=== PATIENT | male | born 1960 | race Caucasian/White ===

== ENCOUNTER → 2019-11-24 | Outpatient (CLI) | payer OTHER ==
[~2019-11-24] MED LIST: ACETAMINOPHEN325 MG PO; ACTOS15 MG PO; ADULT LOW DOSE81 MG PO; CENTRUM SILVER1 EAC2 PO; CIPROFLOXACIN500 M3; CLONAZEPAM 1 MG1 M1 PO; FERREX-150 PLU150 MG; FLAGYL500 MG; HYDROCODON-ACE1 EAC5; HYDROCODONE-AP1 EAC6 PO; LIPITOR40 MG PO; LOPRESSOR50 MG PO; NORCO 5-325 TA1 EACH PO; PERCOCET; PERCOCET 5-3251 EACH; PERCOCET 5-3251 EACH PO; PERCOCET PO; PREDNISONE; PRINIVIL10 MG PO; TOPROL XL50 MG PO; TRICOR48 MG PO; ZOCOR 20 MG TAB20 M1 PO
== END ==
LOC: M.RAD 11:48
DX: R05 Cough (principal); I11.9 Hypertensive heart disease without heart failure; J02.9 Acute pharyngitis, unspecified

== ENCOUNTER 2020-01-14 09:48 | Inpatient (IN) | payer OTHER ==
[~2020-01-14] VITALS: Ht 180.3 cm; Wt 105.4 kg
[2020-01-14] VITALS (8 sets, daily range): BP systolic 110–179; BP diastolic 63–104
[~2020-01-14 09:48] MED LIST changes: +NORCO 5-325 TA1 EAC2 PO
[2020-01-14 10:33] LABS: ABSOLUTE BASOPHILS 0.1 thou/uL (0.0-0.2); ABSOLUTE EOSINOPHILS 0.2 thou/uL (0.0-0.7); ABSOLUTE LYMPHOCYTES 2.9 thou/uL (0.8-5.3); ABSOLUTE MONOCYTES 0.8 thou/uL (0.0-1.2); ABSOLUTE NEUTROPHILS 8.8 thou/uL (1.6-8.1); EOSINOPHILS 1.9 %; HEMATOCRIT 46.9 % (42.0-52.0); HEMOGLOBIN 16.5 gm/dL (14.0-18.0); LYMPHOCYTES 22.3 %; MCH 33.1 pg (26.0-34.0); MCHC 35.1 g/dL (28.0-37.0); MCV 94.2 fL (80.0-100.0); MONOCYTES 6.1 %; MPV 8.2 fl. (7.2-11.1); NUCLEATED RBCS 0 /100WBC; PLATELET COUNT* 214 thou/uL (150-400); POLYS 68.7 %; RBC 4.98 mil/uL (4.50-6.00); RDW-CV 14.5 % (10.5-14.5); WBC 12.8 thou/uL (4.0-11.0)
[2020-01-14 10:40] LABS: CALCIUM 8.8 mg/dL (8.5-10.1); POTASSIUM 4.3 mmol/L (3.5-5.1)
[2020-01-14 10:46] LABS: APTT 28.3 Seconds (25.0-31.3); PROTIME 10.6 Seconds (9.20-11.50)
[2020-01-14 10:54] LABS: ALBUMIN 4.2 g/dL (3.4-5.0); CK-MB MASS 9.6 ng/mL (<0.5-3.6); MAGNESIUM 1.6 mg/dL (1.8-2.4); TOTAL BILIRUBIN 0.5 mg/dL (<0.1-1.0); TOTAL PROTEIN 7.7 g/dL (6.4-8.2)
--- NOTE | 2020-01-14 11:09 | NUR ---
DISCONTINUED CARDIZEM R/T HYPOTENSION. DR HOWELL AT PTS BEDSIDE TO EVAL. PT WILL BE GOING TO CLEAT LAYER. ORDERS FOR AMIODARONE BOLUS AND DRIP TO BE STARTED.
--- NOTE | 2020-01-14 14:21 | EKG ---
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: [facility] : 1960 Requested By: Jake Jaquez Order Number: [id number] MD: Kumar Patel Measurements Intervals [place] Rate: 146 P: 0 MS: QRS: 92 QRSD: 174 T: -53 QT: 348 QTc: 543 Interpretive Statements wide complex tachycardia LBBB Compared to ECG 01/23/2017 08:17:20 LEFT BUNDLE BRANCH BLOCK now noted Sinus rhythm no longer present Electronically Signed On 01-14-2020 14:20:15 REFLESHER by Kumar Patel [email or web address] <ELECTRONICALLY SIGNED> By: Kumar Patel MD, [facility] 01/14/20 1420 0954 0954 Kumar Patel MD, [facility] /EPI
--- NOTE | 2020-01-14 16:36 | NUR ---
PT UP FROM OTM CONSULTANT. PT DEMANDING TO GET UP. INFORMED PT OF RISK OF BLEEDING. PT STATES "I DONT CARE. I WILL BLEED! I NEED TO GET UP OR GET SOME DAMN PAIN MEDICATIONS" [place]CO ORDERED BUT PT STATES IT DOES NOT WORK QUICKLY ENOUGH. DR MILLER PAGED FOR ORDERS
--- NOTE | 2020-01-14 17:00 | NUR ---
PT DIAPHORETIC AND ANXIOUS. REPORTS BACK PAIN AND SOA. BP ELEVATED. HOB ELEVATED WHICH SEEMED TO IMPROVES SOA. EKG DONE WHICH SHOWS RAPID AFLUTTER. PAIN MEDS GIVEN ORDERED. WILL CONTINUE TO MONITOR
[2020-01-14] MEDS ORDERED: METFORMIN HCL500 MG PO (17:45)
[2020-01-14] MEDS ORDERED: BASAGLAR K100 UNIT/1 SUBQ (17:46)
--- NOTE | 2020-01-14 17:51 | CON ---
[address] [address] CONSULTATION Name: VERONICA MENDOZA Room: [address] IN .R.#: [id number] Admission: 01/14/20 Attend Phys: Justin Aguilar Discharge: Date of : 64 Report #: [id number] THIS REPORT FOR: //name// cc: Kumar Kidd MD, David L. MD ~ THIS REPORT FOR: //name// CC: Kumar Damico DATE OF SERVICE: 01/14/2020 INDICATION: Non-ST elevation myocardial infarction and atrial flutter. HISTORY OF PRESENT ILLNESS: The patient is a very pleasant 59-year-old gentleman who is well known to our service. He has a history of coronary artery disease with previous coronary artery bypass grafting remotely. Cardiac catheterization in the setting of acute MD 3 years ago showed an occluded saphenous vein graft to the right coronary artery that was unable to be opened. He had a patent saphenous vein graft to an obtuse marginal and a patent HASTINGS graft to the LAD. The patient reports having intermittent chest discomfort for the past 2 days. The patient is seen in the Emergency Room and found to be in a tachyarrhythmia with underlying bundle branch block that appears most consistent with an atrial flutter with 2:1 conduction. The patient is hemodynamically stable. PAST MEDICAL HISTORY: Significant for hypertension, dyslipidemia and coronary artery disease as outlined above. ALLERGIES: HE IS ALLERGIC TO PENICILLIN. HOME MEDICATIONS: Aspirin 81 mg daily, atorvastatin 80 mg daily, Mangum 5/325 q. 6 hours p.r.n., lisinopril 10 mg daily, Lopressor 50 mg b.i.d., multivitamin 1 tablet daily. FAMILY HISTORY: Positive for coronary artery disease in both his mother and father. SOCIAL HISTORY: The patient is . He smokes a half a pack of cigarettes daily. He drinks alcohol rarely. REVIEW OF SYSTEMS: Positive for chest discomfort, dyspnea on exertion. He denies orthopnea or paroxysmal nocturnal dyspnea. Otherwise, 14-point review [place] [address] CONSULTATION Name: VERONICA MENDOZA Room: [address]#: [id number] Admission: 01/14/20 Attend Phys: Justin Aguilar Discharge: Date of : 64 Report #: [id number] PHYSICAL EXAMINATION: VITAL SIGNS: Blood pressure 118/73, pulse is 146 and regular. GENERAL: This is a pleasant gentleman who does not appear to be in distress. HEENT: Head is normocephalic, atraumatic. Extraocular muscles intact. Mucous membranes are moist. NECK: Shows no jugular venous distention. CHEST: Reveals clear lung shipley. CARDIAC: Reveals a tachycardic rhythm that is regular, without gallop or murmur. ABDOMEN: Reveals normal bowel sounds. The abdomen is soft, nontender. EXTREMITIES: Shows no edema. SKIN: Warm and dry. DIAGNOSTIC DATA: Chest x-ray shows no acute cardiopulmonary abnormality. LABORATORY DATA: Reviewed. Sodium 141, potassium 4.3, chloride 105, bicarb 22, BUN 19, creatinine 1.0, serum glucose 170. NT-proBNP 4412. Troponin is 1.01. Coags are within normal limits. White blood cell count 12.8, hemoglobin 16.5, platelet count 214,000. IMPRESSION AND RECOMMENDATIONS: 1. Tachycardia, likely atrial flutter with 2:1 conduction and bundle branch block. We will proceed with DC cardioversion after sedating the patient. The patient is being given amiodarone bolus and drip at the present time. 2. Non-ST elevation myocardial infarction with symptoms to suggest unstable angina/non-ST segment elevation myocardial infarction. We will proceed with cardiac catheterization with intervention pending the results of that study. 3. Hypertension, adequately controlled at present. We will continue home medications as outlined above. 4. Dyslipidemia. Continue atorvastatin at current dose. 5. Probable acute on chronic combined heart failure. The patient appears stable at this point in time, we will diurese as needed. <ELECTRONICALLY SIGNED> By: Remi Damico MD, FACC 01/14/20 1751 1140 1310Micbong Damico MD, FACC /nt
[2020-01-15] VITALS: BP 120/83
[2020-01-15 04:00] VITALS: BP 128/92
--- NOTE | 2020-01-15 04:43 | NUR ---
PATIENT NOT PROGRESSING TOWARDS GOALS: PATIENT SHORT OF BREATH ANYTIME HE LIES DOWN. ENCOURAGED PATIENT TO KEEP HOB ELEVATED AND TAKE IN DEEP BREATHS. OXYGEN PER NC INCREASED TO 5L O2 NC TO MAINTAIN SATURATION >92%. PATIENT DENIES CHEST PAIN AND DISCOMFORT. CALL LIGHT WITHIN REACH
[2020-01-15 05:05] LABS: HEMATOCRIT 45.6 % (42.0-52.0); HEMOGLOBIN 15.5 gm/dL (14.0-18.0); MCH 32.5 pg (26.0-34.0); MCHC 33.9 g/dL (28.0-37.0); MCV 95.7 fL (80.0-100.0); MPV 8.5 fl. (7.2-11.1); RBC 4.76 mil/uL (4.50-6.00); RDW-CV 14.3 % (10.5-14.5); WBC 14.8 thou/uL (4.0-11.0)
[2020-01-15 05:09] LABS: ANION GAP 12 mmol/L (7-16); BUN 19 mg/dL (7-18); CALCIUM 8.2 mg/dL (8.5-10.1); CHLORIDE 101 mmol/L (98-107); CHOLESTEROL 118 mg/dL (<200); CO2 23 mmol/L (21-32); CREATININE 1.2 mg/dL (0.6-1.3); GLUCOSE 190 mg/dL (70-99); HDL CHOLESTEROL 35 mg/dL (>40); LDL CHOLESTEROL 33 mg/dL (<100); POTASSIUM 4.3 mmol/L (3.5-5.1); SODIUM 136 mmol/L (136-145); TC:HDL 3.4 Ratio (Not establshd); TRIGLYCERIDE 253 mg/dL (<150); VLDL 51 mg/dL (<40)
[2020-01-15 05:25] LABS: SERUM ASSESSMENT CLEAR; TROPONIN-I LEVEL 1.18 ng/mL (<0.06)
[2020-01-15 07:47] VITALS: BP 139/97
--- NOTE | 2020-01-15 09:05 | NUR ---
ASSUMED CARE OF PT THIS AM AROUND 07- RETAIL GREETER IN PLACE ORDERED, TRACING SR- UPON ASSESSMENT PT NOTED TO BE SITTING UP IN BED, PT REPORTS HAVING HARD TIME LAYING BACK WITH BREATHING- A&O X4- CONT OF BOWEL AND BLADDER- SBA WITH TRANSFERS FOR SAFETY- LCTA/DIMINISHED IN BASES- SOA NOTED- VSS, O2 SAT 92% ON 5L VIA NC- ABD SOFT/OBESE/NON-TENDER, BS X4 QUADS- LAST BM REPORTED THIS AM-FAIR PO INTAKE NOTED, BS MONITORED ORDERED WITH SSI PRESCRIBED- IV NOTED TO LEFT AC INTACT, IV AMMIO INFUSSING PRESCIBED- IV LASIX 40MG PER IV X1 GIVEN THIS AM PRESCRIBED-PT RATES PAIN 8/10 TO BACK AND CHEST, PRN HYDROCODONE GIVEN PER PT REQUEST- CALL LIGHT AND PERSONAL BELONGINGS WITH IN REACH- PT MAKES NEEDS KNOWN- ALL NEEDS MET AT THIS TIME-WCTM
--- NOTE | 2020-01-15 10:10 | EKG ---
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 : 1960 Requested By: Kumar Patel Order Number: [id number] Fredi MD: Kumar Patel Measurements Intervals [place] Rate: 138 P: 244 MI: 55 QRS: 96 QRSD: 161 T: -62 QT: 354 QTc: 537 Interpretive Statements wide complex tachycardia LBBB Prolonged QT interval Artifact in lead(s) II,V4,V5 and baseline wander in lead(s) V3 Compared to ECG 01/14/2020 09:54:05 no change Electronically Signed On 01-15-2020 10:08:50 SOLVENT PLANT TREATER by Kumar Patel [email or web address] <ELECTRONICALLY SIGNED> By: Kumar Patel MD, FAC 01/15/20 1008 1655 1655 Kumar Patel MD, FAC /EPI
--- NOTE | 2020-01-15 10:22 | EKG ---
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
[2020-01-15 12:48] VITALS: BP 134/96
--- NOTE | 2020-01-15 14:32 | NUR ---
Pt is A&O. Resides at home alone. Active and independent, continues to work. No DME, no O2. No hx of HH. Hx of SNF at [facility]. Goal is home at mt. Following.
[2020-01-15 15:17] VITALS: BP 134/96
[2020-01-15 20:00] VITALS: BP 136/88
[2020-01-16] VITALS (7 sets, daily range): BP systolic 111–134; BP diastolic 59–96
[2020-01-16 05:26] LABS: CALCIUM 8.4 mg/dL (8.5-10.1); POTASSIUM 3.8 mmol/L (3.5-5.1)
--- NOTE | 2020-01-16 05:29 | NUR ---
PATIENT PROGRESSING TOWARDS GOALS: REPORTS THAT HIS SHORTNESS OF AIR HAS IMPROVED. HE HAS BEEN ABLE TO LIE DOWN AND SLEEP THIS SHIFT. PATIENT REMAINS ON 5L O2 NC. INSTRUCTED TO VOID IN URINAL SO THAT WE CAN MEASURE OUTPUT. PATIENT COMPLIANT WITH INSTRUCTIONS. CALL LIGHT WITHIN REACH
--- NOTE | 2020-01-16 09:08 | NUR ---
ASSUMED CARE OF PT THIS AM AROUND 0715- HIGH SCHOOL SOCIAL STUDIES TUTOR IN PLACE ORDERED, TRACING SR/BBB- UPON ASSESSMENT PT NOTED TO BE RESTING IN BED, WATCHING TV- PT A&O X4- CONT OF B/B- UP AD-RUFUS IN ROOM, STEADY GAIT NOTED- LCTA/DIMINISHED IN BASES- DYSPNEA NOTED ON EXERTION, NOTED WITH IMPROVEMENT- PT REPORTS TO BE ABLE TO BREATH BETTER AND SOA IMPROVED- VSS, O2 SAT 98% ON 3L VIA NC- ABD FIRM/ROUND/NON-TENDER, BS X4 QUADS- LAST BM REPORTED 01/15/20- GOOD PO INTAKE NOTED THIS AM WITH BREAKFAST, BS MONITORED ORDERED WITH SSI PRESCIBED-IV NOTED LEFT AC INTACT AND SL- PT RATES PAIN 02/18 TO BACK THIS AM, PRN HYDROCODONE GIVEN AT 0840- CALL LIGHT AND PERSONAL BELONGINGS WITH IN REACH- PT MAKES NEEDS KNOWN- ALL NEEDS MET AT THIS TIME-WCTM
[2020-01-16] MEDS ORDERED: PLAVIX 75 MG TA75 MG PO (09:38)
[2020-01-16] MEDS ORDERED: SPIRONOLACTONE25 MG PO (09:41)
[2020-01-16] MEDS ORDERED: NITROSTAT0.4 MG SUBLING (09:43)
[2020-01-16] MEDS ORDERED: ACETAMINOPHEN650 M1 PO (09:44)
[2020-01-16] MEDS ORDERED: CARVEDILOL3.125 MG PO (09:45)
[2020-01-16] MEDS ORDERED: COZAAR 25 MG TA25 MG PO (09:46)
[2020-01-16] MEDS ORDERED: LASIX 40 MG TAB40 MG PO (09:47)
[2020-01-16] MEDS ORDERED: NICOTINE TRANSD21 M1 TRANSDERM (09:50)
[2020-01-16] MEDS ORDERED: AMIODARONE HCL400 MG PO (09:50)
[2020-01-16 12:25] LABS: ABSOLUTE BASOPHILS 0.1 thou/uL (0.0-0.2); ABSOLUTE EOSINOPHILS 0.1 thou/uL (0.0-0.7); ABSOLUTE MONOCYTES 0.9 thou/uL (0.0-1.2); ABSOLUTE NEUTROPHILS 9.1 thou/uL (1.6-8.1); BASOPHILS 0.7 %; EOSINOPHILS 0.9 %; HEMATOCRIT 41.8 % (42.0-52.0); HEMOGLOBIN 14.6 gm/dL (14.0-18.0); LYMPHOCYTES 16.3 %; MCH 32.9 pg (26.0-34.0); MCHC 34.9 g/dL (28.0-37.0); MCV 94.3 fL (80.0-100.0); MONOCYTES 7.6 %; MPV 8.1 fl. (7.2-11.1); NUCLEATED RBCS 0 /100WBC; PLATELET COUNT* 145 thou/uL (150-400); POLYS 74.5 %; RBC 4.43 mil/uL (4.50-6.00); RDW-CV 14.4 % (10.5-14.5); WBC 12.2 thou/uL (4.0-11.0)
[2020-01-16] MEDS ORDERED: FISH OIL 1,001000 M2 PO (12:31)
--- NOTE | 2020-01-19 12:48 | CARD ---
[facility] [address] [place] [address] CARDIAC CATH REPORT Name: VERONICA MENDOZA Room: [address] IN [facility]#: [id number] Admission: 01/14/20 Attend Phys: Justin Aguilar Discharge: 01/16/20 Date of : 64 Report #: [id number] THIS REPORT FOR: //name// cc: Kumar Kidd MD, David L. MD ~ THIS REPORT FOR: //name// APPROVED REPORT Study performed: 01/14/2020 11:07:23 Patient Details Patient Status: ED Room #: The patient is a 59 year-old male Event Personnel Remi Damico Screw Machine Repairer, Kumar Patel Ward Service Supervisor, Priya Andrew Theatrical Agent, Rafael Roberts ASSISTANT CORPORATE CONTROLLER Scrub, Nita Finn RTR Monitor Procedures Performed Art Access - R femoral artery, Left Heart Cath Coronaries Bypass Grafts LHCCORCABG, TAMELA Place w/wo Plasty Single CIRC, Hemostasis w/ Mynx Indication Abnormal ECG, Non-STEMI , Arrhythmia, Dyspnea, Cardiomyopathy, Chest pain Risk Factors Hypercholesterolemia, Coronary Artery DiseaseHypertension, Tobacco History () Previous Procedures/Diagnoses Previous CABGPrevious PCI Admission/Lab Medications/Medications given during procedure Glycoprotein IllbIlla Inhibitors, Heparin Unfract., Oxygen Nasal cannula 2 l per min, Lidocaine Subcut 18 ml, Heparin IV bolus 6000 units, Aggrastat IV bolus 10 ml, Nitroglycerin IC 100 mcg, Plavix PO 600 mg Procedure Narrative The patient was brought urgently to the [place] [address] CARDIAC CATH REPORT Name: VERONICA MENDOZA Room: [address]#: [id number] Admission: 01/14/20 Attend Phys: Justin Aguilar Discharge: 01/16/20 Date of : 64 Report #: [id number] Laboratory and was prepped and draped in a sterile manner. The right femoral groin area was infiltrated with 2% Lidocaine subcutaneous anesthesia. A 6F Fay sheath was inserted into the right femoral artery. Coronary angiography was performed using coronary diagnostic catheters. The right coronary system was accessed and visualized with a 6F JR4 catheter. The left coronary system was accessed and visualized with a 6FJL4 catheter. The left ventricle was accessed and visualized with a 6F Angled Pigtail catheter. Left ventricular/Aortic Valve gradient assessed via catheter pullback. Left ventriculogram was performed in NAM projection. Closure device was deployed with a 6 Fr Mynx. The patient tolerated the procedure well and there were no complications associated with the procedure. There was no hematoma. Prior to left heart cath, patient was cardioverted successfully at 300 Joules. The saphenous vein grafts and the HASTINGS graft was accessed and visualized with a 6F JR4 catheter. Intraoperative Conscious Sedation Sedation start time: 11:54 Case end Time: 13:01 Fentanyl 200 mcg Versed 8 mg Fluoro Time: 10.6 minutes Dose: DAP 567448 cGycm2 2409 mGy Contrast Type and Amount: Omnipaque 400 ml Coronary Angiography The patient's coronary anatomy is co- dominant. [place] Artery Percent Stenosis Grafts (Complete if Previous CABG=Yes: Percent Stenosis) Patent HASTINGS graft to the lad. Patent SVG to the diagonal artery. Diagnostic Cath Left Main Mildly plaqued and bifurcates into an LAD and circumflex. LAD Totally occluded after the takeoff of a diagonal branch. The mid and distal vessel filled by HASTINGS graft. Diagonal 1 Small and diffusely moderately plaqued. Diagonal 2 Occluded large branched vessel filled by saphenous vein graft Circumflex 90% stenosed prior to the takeoff of a small obtuse marginal branch. OM1 Small and diffusely plaqued. OM2 Marginal branch vessel with minimal disease. Right Coronary Totally [place] [address] CARDIAC CATH REPORT Name: VERONICA MENDOZA Room: [address] IN [facility]#: [id number] Admission: 01/14/20 Attend Phys: Justin Aguilar Discharge: 01/16/20 Date of : 64 Report #: [id number] PDA Filled by [id number] collaterals. RPLV Filled by [id number] collaterals. Left Ventriculography The left ventricle is moderately dilated in size with severely decreased contractility. The left ventricular ejection fraction is estimated to be 25-30%. The basal inferior wall is akinetic. There is otherwise mobile hypokinesis. Hemodynamics The aortic pressure is 88/63 mmHg with a mean of 72 mmHg. The left ventricular pressure is 107/24 mmHg with a mean of mmHg. The left ventricular end diastolic pressure is 36 mmHg. PCI Technique Lesion Anticoagulation was achieved with Heparin 6000 units IV bolus. bolus of iv aggrastat given Percutaneous coronary intervention was performed on the mid circumflex artery segment. The lesion stenosis prior to intervention was 90% with GUY 3 flow. A 6F XB 4.0 Guide Catheter was used to engage the left main ostium. A BMW 190cm Interventional Guidewire was used to cross the lesion. BALLOON DILATION A Balloon catheter Trek RX 2.5 X 12 was inserted and inflated up to 8.00atm for 12seconds. Repeat angiography revealed the following post-dilatation results: 50% stenosis. Additional Inflation: 8.00atm for 7seconds. Unable to cannulate left main with a XB4.5 guide STENT DEPLOYMENT A drug-eluting stent [place] RX Stent 2.5X22mm was inserted and inflated up to 10.00atm for 15seconds. Repeat angiography revealed the following post-stent deployment results: 0% stenosis. Additional Inflation: 10.00atm for 11seconds. Additional Inflation: 12.00atm for 14seconds. Final angiography reveals 0 % stenosis with GUY 3 flow. Conclusion 1. successful placement of a drug eluting stent in the mid circumflex artery 2. Occluded proximal LAD and proximal right coronary artery as outlined above. 3. Patent HASTINGS graft to the mid to distal LAD. 4. Patent saphenous vein graft 5. Severe LV systolic dysfunction. [address] [address] CARDIAC CATH REPORT Name: VERONICA MENDOZA Room: [address] IN Nick.Ranulfo.#: [id number] Admission: 01/14/20 Attend Phys: Justin Aguilar Discharge: 01/16/20 Date of : 64 Report #: [id number] 6. Elevated left ventricular end-diastolic pressure consistent with acute diastolic as well as systolic heart failure. Recommendations 1. consider ICD placement 2. Continue aggressive medical management and risk factor modification. Medications Administered Clopidogrel Diagnostic Cath Approved by: Remi Damico MD Date/Time: 01/19/2020 11:24:30 <ELECTRONICALLY SIGNED> By: Kumar Patel MD, FACC 01/19/20 1246 1246 1246Kumar Patel MD, FAC /INF
== END 2020-01-16 14:16 | disposition home or self-care (01) | DRG 246 ==
LOC: M.ERS 09:48 → M.TBA-CV 11:40 → M.ERS 11:40 → M.2W 11:40 → M.TBA-CV 12:59 → M.2W 12:59 → M.TBA-CV 16:21 → M.2W 16:21
PROVIDERS: Emergency Medicine; Internal Medicine; Internal Medicine Cardiovascular Disease; ADMIT Internal Medicine
PROC: B2111ZZ Fluoroscopy of Multiple Coronary Arteries using Low Osmolar Contrast (ICD-10-PCS; principal; 2020-01-14)
PROC: B2151ZZ Fluoroscopy of Left Heart using Low Osmolar Contrast (ICD-10-PCS; principal; 2020-01-14)
PROC: 4A023N7 Measurement of Cardiac Sampling and Pressure, Left Heart, Percutaneous Approach (ICD-10-PCS; principal; 2020-01-14)
PROC: 027034Z Dilation of Coronary Artery, One Artery with Drug-eluting Intraluminal Device, Percutaneous Approach (ICD-10-PCS; principal; 2020-01-14)
DX: I21.4 Non-ST elevation (NSTEMI) myocardial infarction (principal); I50.43 Acute on chronic combined systolic (congestive) and diastolic (congestive) heart failure; R65.10 Systemic inflammatory response syndrome (SIRS) of non-infectious origin without acute organ dysfunction; I48.92 Unspecified atrial flutter; I43 Cardiomyopathy in diseases classified elsewhere; I11.0 Hypertensive heart disease with heart failure; E11.9 Type 2 diabetes mellitus without complications; F17.210 Nicotine dependence, cigarettes, uncomplicated; F12.90 Cannabis use, unspecified, uncomplicated; I11.9 Hypertensive heart disease without heart failure; I45.4 Nonspecific intraventricular block; I25.10 Atherosclerotic heart disease of native coronary artery without angina pectoris; E78.5 Hyperlipidemia, unspecified; Z95.5 Presence of coronary angioplasty implant and graft; Z95.1 Presence of aortocoronary bypass graft; Z79.82 Long term (current) use of aspirin; Z79.899 Other long term (current) drug therapy; Z88.0 Allergy status to penicillin; Z79.84 Long term (current) use of oral hypoglycemic drugs

== ENCOUNTER → 2020-05-23 | Outpatient (CLI) | payer OTHER ==
[~2020-05-23] MED LIST changes: +ACETAMINOPHEN650 M1 PO; +AMIODARONE HCL400 MG PO; +BASAGLAR K100 UNIT/1 SUBQ; +CARVEDILOL3.125 MG PO; +COZAAR 25 MG TA25 MG PO; +FISH OIL 1,001000 M2 PO; +LASIX 40 MG TAB40 MG PO; +METFORMIN HCL500 MG PO; +NICOTINE TRANSD21 M1 TRANSDERM; +NITROSTAT0.4 MG SUBLING; +PLAVIX 75 MG TA75 MG PO; +SPIRONOLACTONE25 MG PO
[2020-05-23 10:45] LABS: ABSOLUTE BASOPHILS 0.1 thou/uL (0.0-0.2); ABSOLUTE EOSINOPHILS 0.4 thou/uL (0.0-0.7); ABSOLUTE LYMPHOCYTES 2.1 thou/uL (0.8-5.3); ABSOLUTE MONOCYTES 0.5 thou/uL (0.0-1.2); ABSOLUTE NEUTROPHILS 5.1 thou/uL (1.6-8.1); BASOPHILS 1.4 %; EOSINOPHILS 4.6 %; HEMATOCRIT 39.9 % (42.0-52.0); HEMOGLOBIN 14.4 gm/dL (14.0-18.0); LYMPHOCYTES 25.4 %; MCV 97.2 fL (80.0-100.0); MONOCYTES 6.5 %; NUCLEATED RBCS 0 /100WBC; PLATELET COUNT* 201 thou/uL (150-400); POLYS 62.1 %; RBC 4.11 mil/uL (4.50-6.00); RDW-CV 14.8 % (10.5-14.5); WBC 8.3 thou/uL (4.0-11.0)
== END ==
LOC: M.LAB 10:11
PROVIDERS: ATTEND Nurse Practitioner
DX: K92.1 Melena (principal)

== ENCOUNTER 2020-07-11 09:29 | Observation (INO) | payer OTHER ==
[~2020-07-11] VITALS: Ht 177.8 cm; Wt 104.8 kg
--- NOTE | ~2020-07-11 | PROC ---
[facility] [address] [place] [address] PROCEDURE REPORT Name: VERONICA MENDOZA Room: [address] Delphine MIgnacio#: [id number] Admission: 07/11/20 Attend Phys: Justin Aguilar Discharge: 07/13/20 Date of : 64 Report #: [id number] THIS REPORT FOR: //name// cc: Kumar Kidd MD, David L. MD ~ THIS REPORT FOR: //name// For GI report, please see the Provation report in Perceptive 7 content. By: [facility]0Medical Records Staff JÚNIOR /MARIAH
[2020-07-11 09:35] VITALS: BP 121/79
[2020-07-11 10:18] LABS: HEMATOCRIT 46.3 % (42.0-52.0); HEMOGLOBIN 16.6 gm/dL (14.0-18.0); MCH 34.4 pg (26.0-34.0); MCHC 35.8 g/dL (28.0-37.0); MCV 96.1 fL (80.0-100.0); MPV 7.6 fl. (7.2-11.1); NUCLEATED RBCS 0 /100WBC; PLATELET COUNT* 258 thou/uL (150-400); RBC 4.81 mil/uL (4.50-6.00); RDW-CV 13.9 % (10.5-14.5); WBC 15.9 thou/uL (4.0-11.0)
[2020-07-11 10:28] LABS: APTT 25.7 Seconds (25.0-31.3); PROTIME 10.7 Seconds (9.20-11.50)
[2020-07-11 10:29] LABS: CALCIUM 9.4 mg/dL (8.5-10.1); CREATININE 1.7 mg/dL (0.6-1.3); POTASSIUM 4.8 mmol/L (3.5-5.1)
[2020-07-11 10:34] LABS: ALBUMIN 4.5 g/dL (3.4-5.0); MAGNESIUM 1.8 mg/dL (1.8-2.4); TOTAL BILIRUBIN 0.6 mg/dL (<0.1-1.0); TOTAL PROTEIN 8.6 g/dL (6.4-8.2)
[2020-07-11 10:51] LABS: ABSOLUTE LYMPHOCYTES 1.7 thou/uL (0.8-5.3); ABSOLUTE MONOCYTES 0.6 thou/uL (0.0-1.2); ABSOLUTE NEUTROPHILS 13.5 thou/uL (1.6-8.1); ANISOCYTOSIS 1+; PLATELET ESTIMATE ADEQUATE; POIKILOCYTOSIS 1+
[2020-07-11 13:25] VITALS: BP 121/83
[2020-07-11 15:26] LABS: CALCIUM 9.1 mg/dL (8.5-10.1); CREATININE 1.6 mg/dL (0.6-1.3); POTASSIUM 4.3 mmol/L (3.5-5.1)
[2020-07-11 17:28] VITALS: BP 120/79
[2020-07-11 20:24] VITALS: BP 179/102
[2020-07-11 22:09] VITALS: BP 158/89
[2020-07-12] VITALS (7 sets, daily range): BP systolic 121–171; BP diastolic 79–110
[2020-07-12 05:53] LABS: CALCIUM 8.6 mg/dL (8.5-10.1); CREATININE 1.4 mg/dL (0.6-1.3)
[2020-07-12 10:24] LABS: HEMATOCRIT 43.3 % (42.0-52.0); HEMOGLOBIN 15.4 gm/dL (14.0-18.0); MCH 34.4 pg (26.0-34.0); MCHC 35.5 g/dL (28.0-37.0); MCV 96.8 fL (80.0-100.0); MPV 7.6 fl. (7.2-11.1); RBC 4.47 mil/uL (4.50-6.00); RDW-CV 13.7 % (10.5-14.5); WBC 11.7 thou/uL (4.0-11.0)
--- NOTE | 2020-07-12 16:17 | EKG ---
[place] [address] ELECTROCARDIOGRAM REPORT Name: VERONICA MENDOZA Room: [address] M.R.#: [id number] Admission: 07/11/20 Attend Phys: Alejandro Camilo Discharge: Date of : 64 Date of Service: 07/11/20 0936 Report #: [id number] THIS REPORT FOR: //name// [facility] ED Test Date: 2020-07-11 Test Time: 09:36:22 Pat Name: EVRONICA MENDOZA Department: Room: [facility] Gender: M Revenue Officer: MADALYN : 1960 Requested By: Matthew Ware Order Number: [id number] MD: Bony Alegre Measurements Intervals [place] Rate: 91 P: 51 VA: 156 QRS: 262 QRSD: 157 T: 84 QT: 450 QTc: 554 Interpretive Statements Atrial-sensed ventricular-paced rhythm No further analysis attempted due to paced rhythm Baseline wander in lead(s) V6 Compared to ECG 01/15/2020 08:30:25 Paced rhythm is noted Electronically Signed On 07-12-2020 16:17:34 CDT by Bony Alegre [email or web address] <ELECTRONICALLY SIGNED> By: Bony Alegre MD, [facility] 07/12/20 1617 0936 Bony Alegre MD, FAC /EPI
[2020-07-13 04:00] VITALS: BP 121/74
[2020-07-13 08:00] VITALS: BP 134/87
[2020-07-13 08:26] VITALS: BP 134/87
[2020-07-13 16:55] VITALS: BP 134/87
[2020-07-13] MEDS ORDERED: BENTYL 10 MG CA10 M1 PO ×2 (16:59)
[2020-07-13 17:12] VITALS: BP 143/91
--- NOTE | 2020-07-14 13:42 | CON ---
[address] [address] CONSULTATION Name: VERONICA MENDOZA Room: [address] Delphine Ibanez#: [id number] Admission: 07/11/20 Attend Phys: Justin Aguilar Discharge: 07/13/20 Date of : 64 Report #: [id number] THIS REPORT FOR: //name// cc: Kumar Kidd MD, David L. MD ~ THIS REPORT FOR: //name// CC: Kumar Camilo DATE OF SERVICE: 07/12/2020 HISTORY OF PRESENT ILLNESS: This is a pleasant 60-year-old white male who is presenting for evaluation of nausea and vomiting. The patient reports the patient's symptoms began on Saturday after starting Ozempic for his diabetes. The patient reports nausea and vomiting several times a day, especially exacerbated by food. He denies any hematemesis or hematochezia. The patient also reports pain located in the epigastric region that is localized, nonradiating. The patient has reported symptoms of nausea and vomiting, has had some intermittent dysphagia. Denies weight loss, hematemesis, or other alarm symptoms. The patient reports he never had an EGD before. PAST MEDICAL HISTORY: Hypertension, hyperlipidemia, coronary artery disease, and history of cardiomyopathy. PAST SURGICAL HISTORY: Coronary artery bypass grafting. SOCIAL HISTORY: The patient has significant history of smoking. He quit in 01/2020. Prior to that, he has a 69-xfnu-xoja history of smoking. He reports occasional alcohol and occasional marijuana use. FAMILY HISTORY: There is no family history of colon cancer or Nino-related neoplasia. REVIEW OF SYSTEMS: A comprehensive 10-point review of systems is negative except for what was mentioned in the HPI. PHYSICAL EXAMINATION: GENERAL: The patient is alert, awake, and oriented x 3. HEENT: Pupils are equal, round, reactive to light and accommodation. Mucous membranes are moist. There is no congestion. LUNGS: Clear to auscultation bilaterally. CARDIOVASCULAR: Rate and rhythm regular, S1, S2 present. ABDOMEN: Soft. There is mild tenderness to deep palpation in the epigastric region. Otherwise, [place] [address] CONSULTATION Name: VERONICA MENDOZA [address]: [address]#: [id number] Admission: 07/11/20 Attend Phys: Justin Aguilar Discharge: 07/13/20 Date of : 64 Report #: [id number] EXTREMITIES: Warm, trace pitting edema. LABORATORY DATA: Hemoglobin 15.4, hematocrit 43.3, platelet count 222, and WBC count 11.7. INR 1.0. Sodium 132, potassium 4.0, chloride 98, bicarbonate 24, BUN 33, creatinine 1.4. IMAGING STUDIES: Abdomen and pelvis CT angio does demonstrate fusiform 3.5 to 4.2 cm infrarenal abdominal aortic aneurysm, increased in size since 2014; fusiform bilateral common iliac artery aneurysms measuring 2 cm, increased in size since previous measurement as well. ASSESSMENT AND PLAN: A pleasant 60-year-old gentleman presenting with intractable nausea and vomiting. We will proceed with esophagogastroduodenoscopy to rule out mucosal disease tomorrow and get a gastric emptying test. I suspect the patient has gastroparesis related to his poorly controlled diabetes. Further recommendations will be based on results of these tests. <ELECTRONICALLY SIGNED> By: Arjun Arcos MD 07/14/20 134 47 11Arjun Arcos MD /nt
--- NOTE | 2020-07-14 18:06 | PATH ---
[address] [address] PATHOLOGY RPT PROCEDURE Name: GUS MENDOZA Room: [address] Delphine Ibanez#: [id number] Admission: 07/11/20 Date of : 64 Discharge: 07/13/20 Report #: [id number] Path Case #: [id number] [facility] Accession Number: [id number] . 01 Material submitted: . stomach - GASTRIC BIOPSY . 01 Clinical history: . CHEST PAIN, GASTRITIS . 02 Diagnosis: "Gastric biopsy", biopsy: - Gastric mucosa with mild reactive changes. - Negative H. pylori immunohistochemical stain (block A1); control reacted appropriately. . (CLW:mmmilan; 07/14/2020) [facility] 07/14/2020 1604 Local . 02 Electronically signed: . Jeana Mendieta MD, Pathologist NPI- [id number] . 01 Gross description: . The specimen is received in formalin, labeled "Gus Mendoza, gastric biopsy". Received are two segments of pale jeffrey soft tissue ranging in size from 0.3 to 0.4 cm in maximum dimensions. The specimen is submitted entirely in cassette A1. (CAA; 07/13/2020) QAC/QAC 07/13/2020 1818 Local . 02 Pathologist provided ICD-10: R10.9, K29.70 . 02 CPT . 986775, J37961 Specimen Comment: A courtesy copy of this report has been sent to [phone], [phone] Specimen Comment: [phone], , Specimen Comment: Report sent to ,DR MILLER / DR CANTU Specimen Comment: DR MENDENHALL Performed at: [address] [id number] MD Silver Mackenzie MD Phone: [phone] Performed at: [address] [id number] [place] [address] PATHOLOGY RPT PROCEDURE Name: GUS MENDOZA Room: [address] M.RLeona#: [id number] Admission: 07/11/20 Date of : 64 Discharge: 07/13/20 Report #: [id number] Path Case #: [id number] MD Rosalino Elizondo MD Phone: [phone]
== END 2020-07-13 18:00 | disposition home or self-care (01) ==
LOC: M.ERS 09:29 → M.TBA-ER 11:31 → M.2W 11:31
PROVIDERS: Emergency Medicine Emergency Medical Services; Registered Nurse; ADMIT Internal Medicine; ATTEND Internal Medicine
DX: K52.9 Noninfective gastroenteritis and colitis, unspecified (principal); K29.70 Gastritis, unspecified, without bleeding; I48.92 Unspecified atrial flutter; I25.10 Atherosclerotic heart disease of native coronary artery without angina pectoris; I42.8 Other cardiomyopathies; E78.5 Hyperlipidemia, unspecified; I10 Essential (primary) hypertension; E11.9 Type 2 diabetes mellitus without complications; I25.2 Old myocardial infarction; K31.84 Gastroparesis; F17.210 Nicotine dependence, cigarettes, uncomplicated; Z79.82 Long term (current) use of aspirin; Z79.4 Long term (current) use of insulin; Z79.899 Other long term (current) drug therapy; Z20.828 Contact with and (suspected) exposure to other viral communicable diseases

== ENCOUNTER → 2020-07-15 | Outpatient (CLI) | payer OTHER ==
[~2020-07-15] MED LIST changes: +BENTYL 10 MG CA10 M1 PO
== END ==
LOC: M.CT 14:30
PROVIDERS: ATTEND Registered Nurse Diabetes Educator
DX: K57.30 Diverticulosis of large intestine without perforation or abscess without bleeding (principal); R91.8 Other nonspecific abnormal finding of lung field; K76.0 Fatty (change of) liver, not elsewhere classified; N28.89 Other specified disorders of kidney and ureter; I71.4 Abdominal aortic aneurysm, without rupture; K59.00 Constipation, unspecified

== ENCOUNTER → 2022-01-08 | Outpatient (CLI) | payer OTHER ==
--- NOTE | 2022-01-08 16:39 | CARDNUC ---
[place] [address] CARDIAC NUCLEAR IMAGING REPORT Name: VERONICA MENDOZA Room: [facility]#: [id number] Admission: 01/08/22 Attend Phys: Zaria Chaney RN Discharge: Date of : 64 Date of Service: 01/08/22 1638 Report #: [id number] THIS REPORT FOR: cc: [place] Tammy RNP Liston, Michael J. MD [facility] ~ APPROVED REPORT Study performed: 01/08/2022 14:10:00 Exam: Nuclear Stress Test Indication: CAD Patient Location: Out-Patient Stress Nurse: Abril Ray RN [place] Tech:RHETT Branch Ht: 5 ft 11 in Wt: 227 lbs BSA: 2.23 m2 BMI: 31.65 Medical History Medical History: CAD s/p CABG, Carotid artery disease, Cardiomyopathy, Diabetes, HTN, Hyperlipidemia, ICD, Pacemaker in situ Medications: entresto, atprvastatin, carvedilol, lasix, ntg, spironolactone Allergies: ozempic, sulfa, penicillin Cardiac Risk Factors: Age, Current Smoker, DM, FHX of CAD, HTN, Hyperlipidemia Previous Cardiac Procedures: CABG, ICD, PPM Exercise History: Indeterminate Stress Test Details Stress Test: Pharmacologic stress testing performed using 0.4 mg of regadenoson per 5 mL given IV over 10 seconds. Reason for pharmacologic stress test: PPM. HR Resting HR: 85 bpm Max Heart Rate (APMHR): 161 bpm Max HR Achieved: 97 bpm Target HR (85% APMHR): 136 bpm % of APMHR: 60 Recovery HR: 94 bpm BP Resting BP: 133/95 mmHg Max BP: 163/98 [place] [address] CARDIAC NUCLEAR IMAGING REPORT Name: VERONICA MENDOZA Room: [facility]#: [id number] Admission: 01/08/22 Attend Phys: Zaria Chaney RN Discharge: Date of : 64 Date of Service: 01/08/22 1638 Report #: [id number] Resting ECG: Atrial sensing with ventricular pacing Stress ECG: Atrial sensing with ventricular pacing ST Change: None Arrhythmia: None Recovery ECG: Atrial sensing with ventricular pacing Recovery ST Change: None Recovery Arrhythmia: None Clinical Reason for Termination: Completed protocol The patient tolerated Lexiscan infusion without significant cardiac symptoms. Stress ECG Conclusion The baseline twelve-lead EKG shows sinus rhythm with ventricular pacing. EKGs obtained during and post Lexiscan infusion show sinus rhythm with ventricular pacing. There were no significant stress-induced arrhythmias. NM EXAM: Myocardial Perfusion REST/STRESS Imaging Protocol: Rest Tc-99m/Stress Tc-99m 1 day Resting Data Rest SPECT myocardial perfusion imaging was performed in supine position 30 minutes following the intravenous injection of 9.6 mCi of Tc-99m Sestamibi. Time of rest injection: 1315 Date: 01/08/2022 The images were gated to evaluate regional wall motion and calculate left ventricular ejection fraction. Administration Route: IV Administration Site: Left AC Pharmacologic Stress Pharmacologic stress test was performed by injecting Regadenoson 0.4 mg IV push followed by the intravenous injection of 34.0 mCi of Tc-99m Sestamibi. Time of stress injection: 1410 Date: 01/08/2022 Administration Route: IV Administration Site: Left AC Gated Stress SPECT was performed 40 minutes after stress injection. The images were gated to evaluate regional wall motion and calculate left [place] [address] CARDIAC NUCLEAR IMAGING REPORT Name: VERONICA MENDOZA Room: [facility]#: [id number] Admission: 01/08/22 Attend Phys: Zaria Chaney RN Discharge: Date of : 64 Date of Service: 01/08/22 1638 Report #: [id number] Study Quality Study: Good Artifact: No artifact Study Data At rest, the left ventricular ejection fraction was 31%.. Post stress, the left ventricular ejection was 32%.. TID = 1.02. Perfusion Perfusion images show a large in size severe intensity fixed defect involving the basal to mid inferior wall consistent with prior infarct. Additionally there is a moderate sized moderate intensity reversible defect involving the anterolateral lateral wall consistent with ischemia. Wall Motion There is severe global left ventricular systolic dysfunction with akinesis of the basal to mid inferior wall. The left ventricle appears dilated. Nuclear Conclusion ECG Findings: negative for ischemia Clinical Findings: negative for ischemia Nuclear Findings: positive for ischemia Exercise Capacity: not assessed Left Ventricular Function: abnormal Risk Study: high Perfusion images suggest previous infarct of the inferior wall. There is residual ischemia involving significant portions of the anterior anterolateral wall. Left ventricular systolic function is severely decreased as outlined above. This is a high risk study. <Conclusion> The baseline twelve-lead EKG shows sinus rhythm with ventricular pacing. EKGs obtained during and post Lexiscan infusion show sinus rhythm with ventricular pacing. There were no significant stress-induced arrhythmias. <ELECTRONICALLY SIGNED> By: Remi Damico MD, FACC 01/08/22 1638 1638 1638 Remi Damico MD, FACC /INF
== END ==
LOC: M.NUC 01-01 15:51
PROVIDERS: ATTEND Registered Nurse
DX: I25.89 Other forms of chronic ischemic heart disease (principal); I25.5 Ischemic cardiomyopathy